=== PATIENT | female | born 1945 | race Caucasian/White ===

== ENCOUNTER → 2024-01-11 14:16 | Outpatient (REF) | payer MEDICARE, SELFPAY ==
[2024-01-11 14:32] LABS: % Basophils 0.1 % (0-2); % Eosinophils 0.1 % (0-6); % Immature Granulocytes 0.3 % (0-0.5); % Lymphocytes 2.7 % (20.5-51.1); % Monocytes 3.6 % (1.7-9.3); % Neutrophils 93.2 % (42.2-75.2); Absolute Lymphocytes 0.3 10^3/uL (1.2-3.4); Absolute Monocytes 0.4 10^3/uL (0.1-0.6); Hematocrit 45.4 % (37.0-47.0); Hemoglobin 15.3 g/dL (12.0-16.0); Mean Corp Hgb Conc. 33.7 g/dL (33.0-37.0); Mean Corpuscular Hgb 30.1 pg (27.0-31.0); Mean Corpuscular Volume 89.2 fL (81.0-99.0); Mean Platelet Volume 13.7 fL (7.4-10.4); Nucleated Red Blood Cells % 0 %; Platelet Count 166 10^3/uL (130-400); Red Blood Cell Count 5.09 10^6/uL (4.20-5.40); Red Cell Dist. Width 14.3 % (11.5-14.5); White Blood Cell Count 9.7 10^3/uL (4.8-10.8)
[2024-01-11 14:39] LABS: Blood Urea Nitrogen 21 mg/dl (7-17); Carbon Dioxide 27 mmol/L (22-30); Chloride 98 mmol/L (98-107); Glucose 139 mg/dl (70-99); Sodium 137 mmol/L (135-145); eGFR > 60.00
[2024-01-11 14:43] LABS: Urine Albumin Trace (Neg - Trace); Urine Bilirubin 1+ (Negative); Urine Character Very Cloudy (Clear); Urine Color Yellow; Urine Glucose Negative (Negative); Urine Ketone Trace (Negative); Urine Leukocyte 2+ (Negative); Urine Nitrite Positive (Negative); Urine Occult Blood 2+ (Negative); Urine Specific Gravity 1.015 (<1.030); Urine Urobilinogen Negative (Neg - 1+)
[2024-01-11 14:59] LABS: Urine Bacteria Moderate (Negative); Urine White Cell 16-20 /HPF (0-5)
== END ==
LOC: OLABN 14:16
PROVIDERS: ATTENDING PHYSICIAN Student in an Organized Health Care Education/Training Program
DX: R41.82 Altered mental status, unspecified (principal)
CPT/HCPCS: 36415; 80048; 81003; 81015; 85025; 87077; 87086; 87186

== ENCOUNTER → 2025-06-16 10:04 | Outpatient (REF) | payer MEDICARE, OTHER, SELFPAY ==
[2025-06-16 11:03] LABS: Hematocrit 45.3 % (37.0-47.0); Hemoglobin 15.3 g/dL (12.0-16.0); Mean Corp Hgb Conc. 33.8 g/dL (33.0-37.0); Mean Corpuscular Volume 89.9 fL (81.0-99.0); Nucleated Red Blood Cells % 0 %; Platelet Count 156 10^3/uL (130-400); Red Cell Dist. Width 13.9 % (11.5-14.5)
[2025-06-16 12:00] LABS: ALT (SGPT) 17 U/L (0-35); AST (SGOT) 31 U/L (14-36); Albumin 4.2 g/dl (3.5-5.0); Alkaline Phosphatase 84 U/L (38-126); Blood Urea Nitrogen 10 mg/dl (7-17); Calcium 9.2 mg/dl (8.4-10.2); Carbon Dioxide 23 mmol/L (22-30); Chloride 102 mmol/L (98-107); Glucose 145 mg/dl (70-99); Potassium 4.0 mmol/L (3.5-5.1); Sodium 134 mmol/L (135-145); Total Protein 7.0 g/dl (6.3-8.2); eGFR > 60.00
[2025-06-16 14:23] LABS: Urine Character Cloudy (Clear)
[2025-06-16 14:48] LABS: Urine Urothelial Cell 0-2 /LPF (FEW)
== END ==
LOC: OLABN 10:04
PROVIDERS: ATTENDING PHYSICIAN Student in an Organized Health Care Education/Training Program
DX: R82.90 Unspecified abnormal findings in urine (principal)
CPT/HCPCS: 36415; 80053; 81003; 81015; 85025; 87086

== ENCOUNTER 2025-06-16 21:57 | Emergency (ER) | payer MEDICARE, SELFPAY ==
[2025-06-16 22:05] VITALS: BP 120/44
[2025-06-16 23:00] VITALS: BP 134/51
--- NOTE | 2025-06-16 23:09 | ED.GENMED ---
History of Present Illness
<Alix Cuadra MD, Resident - Last Filed: 06/17/25 00:21>
General
Chief Complaint: Change in Mental Status
Source: alf
Exam Limitations: altered mental status and dementia
Time Seen by Provider: 06/16/25 23:01
Nursing documentation reviewed up to this point in time: agreed with
History of Present Illness
History of Present Illness:
79yo F with a past medical history of dementia, hearing impairment and alcohol abuse comes to the ED from her facility at [facility] due to increased confusion. The increased confusion has been going on for the past 2 days or so per her nursing
home. She was diagnosed with a UTI and started a course of macrobid 100mg BID for 5 days and received one dose. It took multiple nurses today to get blood and urine sample from her which were sent to the Hospital. Earlier tonight, her mental status
worsened and she started removing all her clothes, her oxygen saturation dropped to 87% and the nurse could not reason with her. Her temperature was also up to 99.7 at the time.
Past History
<Alix Cuadra MD, Resident - Last Filed: 06/17/25 00:21>
Past History
ED Past Medical History: Other (Dementia) and Other (Alcohol abuse)
ED Past Surgical History: None
Social History
Tobacco: Smoker
Alcohol: Daily
Personal:
Living: alf
Family History
Family History: Other ([place])
Review of Systems
<Alix Cuadra MD, Resident - Last Filed: 06/17/25 00:21>
Review of Systems
Unable to obtain full review of systems at this time due to: dementia
Other source history: alf
Constitutional: Reports fever
Neurological: Reports other (Increased confusion)
Phy Exam
<Alix Cuadra MD, Resident - Last Filed: 06/17/25 00:21>
General Physical Exam
General Presentation: mild distress
General Skin: warm and dry
General Habitus: obese
General Mental: other (Somnolent)
General Chronic Disability: demented
Cardiovascular Exam
Cardiovascular Exam: regular rate/rhythm, no edema and no murmur
Pulmonary Exam
Pulmonary Exam: lungs clear, no respiratory distress and no crackles
Psychiatric Exam
Psychiatric Exam: agitated and other (dementia)
Course
<Alix Cuadra MD, Resident - Last Filed: 06/17/25 00:21>
Orders/Labs/Results
Orders:
Orders
06/16/25 23:35
Arterial Blood Gas Urgent
%Oxygen/Room Air: 93
06/17/25 00:15
Nitrofurantoin Monohydrate [Macrobid] 100 mg PO NOW STA
Abnormal Lab Results
06/16/25
23:35
pCO2 37 H mmHg
(32-35)
ABG O2 Sat (Measured) 98.7 H %
(94-98)
Vital Signs
Initial and Last Documented VS:
Initial Vital Signs
Temp
98.7 F
06/16/25 21:59
Last Documented Vital Signs
Temp Pulse Resp BP Pulse Ox
98.7 F 90 21 134/51 95
06/16/25 21:59 06/16/25 22:06 06/17/25 00:29 06/16/25 23:00 06/17/25 00:29
<Nikhil Almanza MD - Last Filed: 06/17/25 01:20>
Orders/Labs/Results
Orders:
Orders
06/16/25 23:35
Arterial Blood Gas Urgent
%Oxygen/Room Air: 93
06/17/25 00:15
Nitrofurantoin Monohydrate [Macrobid] 100 mg PO NOW STA
Abnormal Lab Results
06/16/25
23:35
pCO2 37 H mmHg
(32-35)
ABG O2 Sat (Measured) 98.7 H %
(94-98)
Vital Signs
Initial and Last Documented VS:
Initial Vital Signs
Temp
98.7 F
06/16/25 21:59
Last Documented Vital Signs
Temp Pulse Resp BP Pulse Ox
98.7 F 90 21 134/51 95
06/16/25 21:59 06/16/25 22:06 06/17/25 00:29 06/16/25 23:00 06/17/25 00:29
<Alix Cuadra MD, Resident - Last Filed: 06/17/25 00:21>
MDM/Problems Addressed
Differential Diagnosis Includes:
UTI, worsening Dementia
MDM/Problems Addressed:
79 year old female with worsening confusion over the past 2 days.
Lab work reviewed from earlier this morning (CMP/CBC) which does not show any acute abnormalities
UA not a clean sample, there may be a possible UTI
Called [facility] and found out that patient had worsening mental status earlier in the night as she removed all her clothes and could not be reasoned with. She had started treatment with Macrobid today in the morning, and her oxygen saturation
had dropped to 87%
Called Patient's son and clarified comfort care/code status. Patient was placed on comfort care due to her 'on going issues'. Son says that he would be okay with the patient getting antibiotics and going back to [facility]
Will give patient her night dose of Macrobid and send her back to [facility]
Chronic conditions affecting care: Psychiatric illness
Acute Exacerbation and/or Progression of Chronic Illness: Psychiatric illness
<Alix Cuadra MD, Resident - Last Filed: 06/17/25 00:21>
*Pulse Oximetry
SaO2: 94
Oxygen Mode of Delivery: Room air
Patient hypoxic: no
*Critical Care Note
Total Time (30-74mins, 75-104mins- exclusive of procedures): Not Applicable
ED Attending Note
<Alix Cuadra MD, Resident - Last Filed: 06/17/25 00:21>
-
Portions of this chart may have been created with voice recognition software.� Occasional wrong word or��sound alike� substitutions may have occurred due to the inherent limitations of voice recognition software.
<Nikhil Almanza MD - Last Filed: 06/17/25 01:20>
ED Attending Note
Patient seen and examined by attending physician: Yes
ED Attending Note:
Patient with history of dementia, presents to ED from alf secondary to increased confusion noted by staff over the past 2 days. Patient had blood work done earlier today in alf along with urine test. Initial urinalysis concerning
for potential UTI, and patient was started on Macrobid. Upon arrival, patient is alert and awake, and offers no additional information. Patient request to be left alone repeatedly.
Physical Exam
General: no apparent distress, not acutely ill. afebrile. overweight
Head: nc/at.
Neck: supple. no meningeal signs.
Heart: s1/s2 regular rate and rhythm
Lungs: no acute respiratory distress. clear bilaterally
Abdomen: normal bowel sounds. not tender.
Neuro: alert and oriented x 1. no focal neurological deficits, moving extremities spontaneously
Skin: no rash
Extremities: nonpitting edema.
Arterial blood gas ordered, which does not reveal any evidence of hypercapnia.
Discussed with patient's son, power of tax associate attorney, via phone and confirmed with patient's CODE STATUS, i.e. DNR/DNI, comfort measures only. Patient's son agrees with plan to discharge patient back to alf to continue already prescribed
antibiotics. No indication for further studies, as patient is somewhat complication and uncooperative. As such, treatment will require sedation/restraints. [facility] supervisor notified of patient's son's wishes. Patient will be discharged
back to alf.
Discharge Plan
Departure
Patient Disposition: Care Home/SNF
Date of Disposition: 06/17/25
Time of Disposition: 00:21
Patient with high blood pressure during this ER visit?: Yes
Condition: Fair
Discharge Problem:
Acute UTI
Instructions: Urinary tract infections in adults, Altered Mental Status (DC)
Prescriptions:
No Action
No Current Medications
Referrals:
Edmundo Sheriff DO [Family Provider, Family Practice]
Activity Restrictions/Additional Instructions:
Continue Macrobid 100mg BID for 4 more days
As discussed with your son, continue comfort measures at [facility]
Interventions
Interventions:
*Risk Screen - Suicide Last Done: 06/16/25 21:59
*General Assessment Last Done: 06/16/25 21:59
*Neglect/Abuse Screening Last Done: 06/16/25 21:59
*ED- Fall Risk Assessment Last Done: 06/16/25 21:59
*ED COVID-19 Vaccine History Last Done: 06/16/25 21:59
ED- Pulmonary Assessment Last Done: 06/16/25 21:59
ED- Neurological Assessment Last Done: 06/16/25 21:59
Discharge Date and Time
Print Language: CHINESE
[2025-06-16 23:42] LABS: B.E. 0.6 mmol/L; HCO3 24.6 mmol/L (21-28); O2 Saturation % 98.7 % (94-98); PCO2 37 mmHg (32-35); PO2 88 mmHg (83-108)
== END 2025-06-17 02:05 ==
LOC: EMR 21:57
PROVIDERS: EMERGENCY PHYSICIAN Emergency Medicine; FAMILY PHYSICIAN Student in an Organized Health Care Education/Training Program
DX: N39.0 Urinary tract infection, site not specified (principal); F03.90 Unspecified dementia, unspecified severity, without behavioral disturbance, psychotic disturbance, mood disturbance, and anxiety; H91.93 Unspecified hearing loss, bilateral; F10.10 Alcohol abuse, uncomplicated; F17.200 Nicotine dependence, unspecified, uncomplicated
CPT/HCPCS: 99283; 36415; 80053; 81003; 81015; 82805; 85025; 87086

== ENCOUNTER → 2025-07-05 16:10 | Outpatient (REF) | payer MEDICARE, OTHER, SELFPAY ==
[2025-07-06 10:57] LABS: Urine Character Clear (Clear)
[2025-07-06 11:36] LABS: Urine Squamous Cell >30 /LPF (Few)
[2025-07-06 11:37] LABS: Urine White Cell 0-2 /HPF (0-5)
[2025-07-06 11:38] LABS: Urine Red Blood Cell None Seen /HPF (0-2)
== END ==
LOC: OLABN 16:10
PROVIDERS: ATTENDING PHYSICIAN Student in an Organized Health Care Education/Training Program
DX: Z87.440 Personal history of urinary (tract) infections (principal); N39.0 Urinary tract infection, site not specified
CPT/HCPCS: 81003; 81015; 87086

== ENCOUNTER → 2025-07-13 12:44 | Outpatient (REF) | payer MEDICARE, OTHER, SELFPAY | LOC: RAD 12:44 | PROVIDERS: ATTENDING PHYSICIAN Student in an Organized Health Care Education/Training Program | DX: R52 Pain, unspecified (principal) | CPT/HCPCS: 72050 ==

== ENCOUNTER → 2025-08-04 15:21 | Outpatient (REF) | payer MEDICARE, OTHER, SELFPAY ==
[2025-08-04 16:00] LABS: Hematocrit 44.2 % (37.0-47.0); Hemoglobin 14.8 g/dL (12.0-16.0); Mean Corp Hgb Conc. 33.5 g/dL (33.0-37.0); Mean Corpuscular Volume 91.7 fL (81.0-99.0); Nucleated Red Blood Cells % 0 %; Platelet Count 179 10^3/uL (130-400); Red Cell Dist. Width 14.5 % (11.5-14.5)
[2025-08-04 16:17] LABS: ALT (SGPT) 16 U/L (0-35); AST (SGOT) 22 U/L (14-36); Albumin 4.0 g/dl (3.5-5.0); Alkaline Phosphatase 67 U/L (38-126); Blood Urea Nitrogen 12 mg/dl (7-17); Calcium 9.3 mg/dl (8.4-10.2); Carbon Dioxide 28 mmol/L (22-30); Chloride 99 mmol/L (98-107); Glucose 111 mg/dl (70-99); Potassium 5.2 mmol/L (3.5-5.1); Sodium 133 mmol/L (135-145); Total Protein 6.5 g/dl (6.3-8.2); eGFR > 60.00
== END ==
LOC: OLABN 15:21
PROVIDERS: ATTENDING PHYSICIAN Student in an Organized Health Care Education/Training Program
DX: M62.81 Muscle weakness (generalized) (principal)
CPT/HCPCS: 80053; 85025

== ENCOUNTER → 2025-08-05 07:59 | Outpatient (REF) | payer MEDICARE, OTHER, SELFPAY ==
[2025-08-05 10:57] LABS: Urine Character Clear (Clear)
== END ==
LOC: OLABN 07:59
PROVIDERS: ATTENDING PHYSICIAN Student in an Organized Health Care Education/Training Program
DX: M62.81 Muscle weakness (generalized) (principal)
CPT/HCPCS: 36415; 81003

== ENCOUNTER → 2025-08-07 21:30 | Outpatient (REF) | payer MEDICARE, OTHER, SELFPAY ==
[2025-08-08 10:58] LABS: Urine Character Clear (Clear)
== END ==
LOC: OLABN 21:30
PROVIDERS: ATTENDING PHYSICIAN Student in an Organized Health Care Education/Training Program
DX: M62.81 Muscle weakness (generalized) (principal); R82.90 Unspecified abnormal findings in urine
CPT/HCPCS: 81003; 87086

== ENCOUNTER → 2025-08-10 11:57 | Outpatient (REF) | payer MEDICARE, OTHER, SELFPAY ==
[2025-08-10 12:45] LABS: Urine Character Clear (Clear)
== END ==
LOC: OLABN 11:57
PROVIDERS: ATTENDING PHYSICIAN Student in an Organized Health Care Education/Training Program
DX: M62.81 Muscle weakness (generalized) (principal); R82.90 Unspecified abnormal findings in urine
CPT/HCPCS: 81003; 87086